=== PATIENT | female | born 1990 | race Caucasian/White ===

== ENCOUNTER 2017-01-18 20:23 | Emergency (ER) | payer OTHER ==
[2017-01-19 00:14] VITALS: BP 124/78
== END 2017-01-19 00:14 | disposition home or self-care (01) ==
LOC: ED 20:23
DX: S39.012A Strain of muscle, fascia and tendon of lower back, initial encounter (principal); W19.XXXA Unspecified fall, initial encounter; Y93.89 Activity, other specified; Y92.89 Other specified places as the place of occurrence of the external cause; Y99.8 Other external cause status
CPT/HCPCS: J1885

== ENCOUNTER 2017-12-22 05:37 | Emergency (ER) | payer OTHER ==
[~2017-12-22] VITALS: Ht 172.7 cm; Wt 78.1 kg
[2017-12-22 05:47] VITALS: Ht 172.7 cm; Wt 78.1 kg
[2017-12-22 09:00] VITALS: BP 110/71
== END 2017-12-22 09:00 | disposition home or self-care (01) ==
LOC: ED 05:37
DX: R07.89 Other chest pain (principal)

== ENCOUNTER 2019-06-25 14:21 | Emergency (ER) | payer OTHER ==
[~2019-06-25] VITALS: Ht 170.2 cm; Wt 72.6 kg
[2019-06-25 14:31] VITALS: Ht 170.2 cm; Wt 72.6 kg
[2019-06-25 15:51] LABS: BASOPHIL % 0.7 % (0-2); PLATELET COUNT 225 x10^3mcL (130-400)
[2019-06-25 15:52] LABS: RED CELL DISTRIBUTION WIDTH 14.6 % (11.5-14.5)
[2019-06-25 16:25] VITALS: BP 103/54
== END 2019-06-25 16:25 | disposition home or self-care (01) ==
LOC: ED 14:21
PROVIDERS: Emergency Medicine
DX: N93.8 Other specified abnormal uterine and vaginal bleeding (principal)
CPT/HCPCS: 36415

== ENCOUNTER 2019-07-15 23:11 | Emergency (ER) | payer OTHER ==
[~2019-07-15] VITALS: Ht 172.7 cm; Wt 74.6 kg
[2019-07-15 23:18] VITALS: Ht 172.7 cm; Wt 74.6 kg
[2019-07-16 02:53] VITALS: BP 126/65
== END 2019-07-16 02:53 | disposition home or self-care (01) ==
LOC: ED 23:11
DX: K02.9 Dental caries, unspecified (principal)